=== PATIENT | female | born 1975 | race Caucasian/White ===

== ENCOUNTER 2016-07-16 12:55 | Outpatient (CLI) | payer MEDICAID ==
[~2016-07-16] VITALS: Ht 152.4 cm; Wt 67.7 kg
[~2016-07-16 12:55] MED LIST: ACET325T33 PO; CEPH-443 PO
[2016-07-16 13:08] VITALS: Ht 152.4 cm; Wt 67.7 kg
[2016-07-16 13:09] VITALS: BP 121/63; PULSE 72
[2016-07-16] MEDS ORDERED: PRENAT PO (13:11)
[2016-07-16] MEDS ORDERED: SITA50TA2 PO (13:12)
[2016-07-16] MEDS ORDERED: LACTATED RINGER'S 1,000 ML IV SCH (14:30)
[2016-07-16] MEDS ORDERED: TERBUTALINE 1 MG/ML INJ SC ONE (14:30)
--- NOTE | 2016-07-16 15:15 | RADRPT ---
PROCEDURE: US biophysical profile. CLINICAL INDICATION: Ruptured membranes. TECHNIQUE: Multiple sonographic images of the uterus were obtained. The images were revi ewed on a PACS workstation. COMPARISON: No prior studies are available for comparison. FINDINGS: There is a single live intrauterine gestation. heart rate is 157 beats per minute. The position is cephalic. The placenta is anterior grade II with no abruption or previa. The YOLANDA is 18.3 cm. (Normal = 5-20 cm.) Breathing Movement: 2 Gross Body Movement: 2 Tone: 2 Qualitative Amniotic Fluid Volume: 2 TOTAL: 8 IMPRESSION: 1. The biophysical score is 8/8. RPTAT: QQ .Chance Cerrato MD, Date Time Electronically viewed and signed by .Chance Cerrato MD, MD on 07/16/2016 15:15 .R/
[2016-07-16 15:40] LABS: ADD SCAN DIFF NO
[2016-07-16 15:42] LABS: BASOPHILS % 0.1 % (0.0-2.0); EOSINOPHILS # 0.1 10^3/ul (0.0-0.5); EOSINOPHILS % 0.9 % (0.0-7.0); HEMATOCRIT 35.1 % (37.0-47.0); HEMOGLOBIN 12.4 g/dl (12.0-16.0); LYMPHOCYTES # 1.5 10^3/ul (0.8-2.9); LYMPHOCYTES % 21.9 % (15.0-51.0); MEAN CORPUSCULAR HEMOGLOBIN 33.2 pg (29.0-33.0); MEAN CORPUSCULAR HGB CONC 35.3 g/dl (32.0-37.0); MEAN CORPUSCULAR VOLUME 94.1 fl (82.0-101.0); MEAN PLATELET VOLUME 10.4 fl (7.4-10.4); MONOCYTE # 0.4 10^3/ul (0.3-0.9); MONOCYTES % 5.5 % (0.0-11.0); NEUTROPHIL # 4.9 10^3/ul (1.6-7.5); NEUTROPHILS % 71.2 % (39.0-77.0); PLATELET COUNT 264 10^3/UL (140-415); RED BLOOD COUNT 3.73 10^6/ul (4.20-5.40); RED CELL DISTRIBUTION WIDTH 12.6 % (11.5-14.5); WHITE BLOOD COUNT 6.9 10^3/ul (4.8-10.8)
[2016-07-16 16:03] LABS: ADD UMIC YES; URINE BILIRUBIN (Dip) NEGATIVE (NEGATIVE); URINE BLOOD (Dip) 3+ (NEGATIVE); URINE COLOR LT. YELLOW (YELLOW); URINE GLUCOSE (Dip) NEGATIVE (NEGATIVE); URINE KETONES (Dip) NEGATIVE (NEGATIVE); URINE LEUKOCYTE ESTERASE (Dip) 3+ (NEGATIVE); URINE NITRITE (Dip) NEGATIVE (NEGATIVE); URINE TOTAL PROTEIN (Dip) NEGATIVE (NEGATIVE); URINE UROBILINOGEN (Dip) 0.2 E.U./dL (0.1-1.0)
[2016-07-16 16:18] LABS: BACTERIA,URINE FEW; SQUAMOUS EPITHELIAL CELL,UR FEW
--- NOTE | 2016-07-16 17:43 | QN ---
Documentation Comment 41 y/o female at 34.5 weeks C/O ? SROM and contractions during taking shower in AM when she noticed Watery blood runs along her legs. Patient has HX of GDM class A2 during : has refused insulin injections several times and was started on Metformin and Januvia. On exam: cervix is long , soft and closed Rom Plus is negative BPP 8/8 After IV hydration and SQ Terbutaline U/C subsided, Steroids given, next dose in 24 hours U/A: C/W UTI: empirically treated with Ancef and Macrobid Patient remains incompliant in attending antepartum testing unit: Will try to follow patient as outpatient and convice patient eo attend for antepartum testing. A: PTL:; Resolved will follow as outpatient BLANCO MCCANN MD July 16, 2016 17:43
[2016-07-16] MEDS ORDERED: BETAMET NA PHOS/AC(6 MG/ML) 5ML INJ IM ONE (18:00)
[2016-07-16] MEDS ORDERED: CEFAZOLIN 2 GM/50 ML (PMX) 50 ML IVPB ONE (18:00)
== END 2016-07-16 19:10 | disposition home or self-care (01) ==
LOC: OBT 12:55 → L-D 12:56 → OBT 19:10
PROVIDERS: ATTEND Obstetrics & Gynecology
DX: O60.03 Preterm labor without delivery, third trimester (principal); O24.415 Gestational diabetes mellitus in pregnancy, controlled by oral hypoglycemic drugs; O09.523 Supervision of elderly multigravida, third trimester; Z3A.34 34 weeks gestation of pregnancy
CPT/HCPCS: 76818; 81001; 82962; 84112; 85025; 96361; 96372; J0690; J0702; J3105; J7120; Z7500; 81003; G0463

== ENCOUNTER 2016-07-17 17:54 | Outpatient (CLI) | payer MEDICAID ==
[~2016-07-17] VITALS: Ht 152.4 cm; Wt 68.2 kg
[~2016-07-17 17:54] MED LIST changes: +PRENAT PO; +SITA50TA2 PO
[2016-07-17] MEDS ORDERED: BETAMET NA PHOS/AC(6 MG/ML) 5ML INJ IM ONE ×2 (18:15→18:30)
[2016-07-17 19:13] VITALS: Ht 152.4 cm; Wt 68.2 kg
--- NOTE | 2016-07-17 20:20 | QN ---
Documentation Comment 41 y/o female here for 2nd dose of Dteroids: givem A: labor will follow outpatient BLANCO MCCANN MD July 17, 2016 20:20
--- NOTE | 2016-07-17 20:25 | TRIAGE ---
OB Triage Datetime Report Generated by CPN: 07/17/2016 20:24 Datetime: 07/17/2016 18:31 Assessment Type: Triage Maternal Assessment Level of Consciousness: Fully Conscious DTR's/Clonus: DTRs 2+; No Clonus Headache: Denies Blurred Vision: No Respiratory Effort: Unlabored; Regular Rhythm; Equal Expansion Breath Sounds, Left: Clear and Equal Breath Sounds, Right: Clear and Equal Nausea/Vomiting: Denies RUQ Epigastric Pain: Denies Facial Edema: None Fall Risk Assessment History of Falling: (0) No Secondary Diagnosis: (0) No Ambulatory Aid: (0) Bedrest/Nurse Assist IV Therapy: (0) No Gait: (0) Normal/Bedrest/Immobile Mental Status: (0) Oriented to Own Ability Fall Score: 0 Fall Risk Score Definition: No Risk: No action required Datetime: 07/17/2016 18:12 Labor Evaluation Frequency: 0 Monitor Mode: External Heart Rate FHR Baseline Rate: 130 Monitor Mode: External US FHR Baseline Changes: No Baseline Change Variability: Moderate 6-25 bpm Accelerations: 15X15 Decelerations: None Category: Category I Pain Presence: None/Denies Datetime: 07/17/2016 17:55 Time of Arrival: 07/17/2016 17:55 EGA: 34.6 Arrived By: Ambulatory Arrived From: Home Chief Complaint: 2ND DOSE OF BETHAMETASONE, SPOTTING AND CRAMPING Movement: Present Contractions: Irregular Rupture of Membranes: Denies Vaginal Bleeding: None Vaginal Discharge: Denies Recent Sexual Intercouse: Denies Abdominal Trauma: Not Applicable Patient Complaints: Cramping Datetime: 07/16/2016 18:50 Stage of : OB Triage Datetime: 07/16/2016 18:10 Labor Evaluation Frequency: 0 Monitor Mode: External Resting Tone [place]: Relaxed Heart Rate FHR Baseline Rate: 145 Monitor Mode: External US Variability: Moderate 6-25 bpm Decelerations: None Category: Category I Pain Assessment Pain Scale: 0 Pain Presence: None/Denies Pain Type: N/A Pain Goal: 3 Pain Relief Measures: Comfort Measures Datetime: 07/16/2016 17:10 Labor Evaluation Frequency: OCCAS Monitor Mode: External Duration (sec)2399: 50-70 Quality: Mild Pattern: Normal: <= 5 Contractions in 10 Minutes Resting Tone [place]: Relaxed Heart Rate FHR Baseline Rate: 155 Monitor Mode: External US Variability: Moderate 6-25 bpm Accelerations: 10X10 Decelerations: None Category: Category I Pain Assessment Pain Scale: 0 Pain Presence: None/Denies Pain Type: N/A Pain Goal: 3 Pain Relief Measures: Comfort Measures Datetime: 07/16/2016 16:49 Bedside Blood Glucose: 101 Datetime: 07/16/2016 16:10 Labor Evaluation Frequency: X1 Monitor Mode: External Duration (sec)2399: 40 Quality: Mild Pattern: Normal: <= 5 Contractions in 10 Minutes Resting Tone [place]: Relaxed Heart Rate FHR Baseline Rate: 155 Monitor Mode: External US Variability: Moderate 6-25 bpm Decelerations: None Category: Category I Pain Assessment Pain Scale: 4 Pain Presence: Intermittent Pain Type: Cramping Pain Location: Abdomen Pain Goal: 3 Pain Relief Measures: Comfort Measures Datetime: 07/16/2016 15:13 Labor Evaluation Frequency: 6-7 Monitor Mode: External Duration (sec)2399: 50-70 Pattern: Normal: <= 5 Contractions in 10 Minutes Resting Tone [place]: Relaxed Heart Rate FHR Baseline Rate: 155 Monitor Mode: External US Variability: Moderate 6-25 bpm Accelerations: 10X10 Decelerations: None Category: Category I Pain Assessment Pain Scale: 3 Pain Presence: Intermittent Pain Type: Cramping Pain Location: Abdomen Pain Goal: 3 Pain Relief Measures: Comfort Measures Datetime: 07/16/2016 14:50 Vaginal Exam Dilatation (cms): 0.0 Exam By: dr genaro Vaginal Bleeding: Small Cervix, Consistency: Soft Cervix, Position: Posterior Datetime: 07/16/2016 14:19 Stage of : OB Triage Datetime: 07/16/2016 14:08 Monitor Mode: External Resting Tone [place]: Relaxed Heart Rate FHR Baseline Rate: 145 Monitor Mode: External US Variability: Moderate 6-25 bpm Accelerations: 10X10 Decelerations: None Category: Category I Pain Assessment Pain Scale: 6 Pain Presence: Intermittent Pain Type: Cramping Pain Location: Abdomen Pain Goal: 3 Datetime: 07/16/2016 13:05 Stage of : OB Triage Assessment Type: Triage Maternal Assessment Level of Consciousness: Fully Conscious DTR's/Clonus: DTRs 2+; No Clonus Headache: Denies Blurred Vision: No Respiratory Effort: Unlabored; Regular Rhythm; Equal Expansion Breath Sounds, Left: Clear and Equal Breath Sounds, Right: Clear and Equal Nausea/Vomiting: Denies RUQ Epigastric Pain: Denies Facial Edema: None Temperature Route: Axillary Fall Risk Assessment History of Falling: (0) No Secondary Diagnosis: (0) No Ambulatory Aid: (0) Bedrest/Nurse Assist IV Therapy: (0) No Gait: (0) Normal/Bedrest/Immobile Mental Status: (0) Oriented to Own Ability Fall Score: 0 Fall Risk Score Definition: No Risk: No action required Labor Evaluation Frequency: APPLIED Monitor Mode: External Resting Tone [place]: Relaxed Heart Rate FHR Baseline Rate: 140 Monitor Mode: External US Variability: Moderate 6-25 bpm Decelerations: None Category: Category II Pain Assessment Pain Scale: 6 Pain Presence: Intermittent Pain Type: Cramping Pain Location: Abdomen Pain Goal: 3 Pain Relief Measures: Comfort Measures Datetime: 07/16/2016 13:04 EGA: 34.5 Datetime: 07/16/2016 13:02 Time of Arrival: 07/16/2016 12:40 Arrived By: Ambulatory Arrived From: Home Chief Complaint: C/O POSS SROM/BLEEDING IN SHOWER THIS AM. INTERMITTENT ABDOMINAL PAIN Movement: Present Contractions: Irregular Rupture of Membranes: Unsure Vaginal Discharge: Denies Recent Sexual Intercouse: Denies Patient Complaints: Cramping Time Provider Notified: 07/16/2016 14:19 Provider Notified: GENARO Initial Plan: MONITOR, IV HYDRATION, TERB .25 SQ X1, CBC, ROM PLUS, BPP, ANCEF, BETAMETHASONE
== END 2016-07-17 20:20 | disposition home or self-care (01) ==
LOC: OBT 17:54 → L-D 17:55 → OBT 20:20
PROVIDERS: ATTEND Obstetrics & Gynecology
DX: O60.03 Preterm labor without delivery, third trimester (principal); Z3A.34 34 weeks gestation of pregnancy
CPT/HCPCS: 96372; J0702; Z7500; G0463

== ENCOUNTER 2016-08-15 12:18 | Inpatient (IN) | payer MEDICAID ==
[~2016-08-15] VITALS: Ht 152.4 cm; Wt 67.7 kg
[~2016-08-15 12:18] MED LIST changes: -ACET325T33 PO; -CEPH-443 PO
[2016-08-15] MEDS ORDERED: LACTATED RINGER'S 1,000 ML IV SCH (12:50)
[2016-08-15] MEDS ORDERED: OXYTOCIN 30 UNITS/LR 500 ML IV PRN ×2 (13:00→18:00)
[2016-08-15] MEDS ORDERED: METHYLERGONOVINE 0.2 MG INJ IM PRN ×2 (13:00→18:00)
[2016-08-15] MEDS ORDERED: OXYTOCIN 30 UNITS/LR 500 ML IV SCH (13:00)
[2016-08-15] MEDS ORDERED: CARBOPROST 250 MCG INJ IM PRN ×2 (13:00→18:00)
[2016-08-15] MEDS ORDERED: MISOPROSTOL 200 MCG TAB PR PRN ×2 (13:00→18:00)
[2016-08-15] MEDS ORDERED: CEFAZOLIN 2 GM/50 ML (PMX) 50 ML IV SCH (13:00)
[2016-08-15 13:19] LABS: ADD SCAN DIFF NO
[2016-08-15 13:27] VITALS: Ht 152.4 cm; Wt 67.7 kg
[2016-08-15] MEDS ORDERED: SITA1TAB5 PO (13:27)
[2016-08-15 13:28] VITALS: BP 124/62; PULSE 80; RESP 18
[2016-08-15 13:38] LABS: INR 0.85; PROTIME 11.6 Sec (12.2-14.2); PT RATIO 0.9
[2016-08-15 13:39] LABS: PARTIAL THROMBOPLASTIN TIME 27.2 Sec (25.0-35.0)
[2016-08-15 13:44] LABS: BASOPHILS % 0.1 % (0.0-2.0); EOSINOPHILS % 0.3 % (0.0-7.0); HEMATOCRIT 36.7 % (37.0-47.0); HEMOGLOBIN 12.5 g/dl (12.0-16.0); LYMPHOCYTES # 1.7 10^3/ul (0.8-2.9); LYMPHOCYTES % 24.7 % (15.0-51.0); MEAN CORPUSCULAR HEMOGLOBIN 31.7 pg (29.0-33.0); MEAN CORPUSCULAR HGB CONC 34.1 g/dl (32.0-37.0); MEAN CORPUSCULAR VOLUME 93.1 fl (82.0-101.0); MEAN PLATELET VOLUME 10.7 fl (7.4-10.4); MONOCYTE # 0.5 10^3/ul (0.3-0.9); MONOCYTES % 7.3 % (0.0-11.0); NEUTROPHIL # 4.5 10^3/ul (1.6-7.5); NEUTROPHILS % 67.2 % (39.0-77.0); PLATELET COUNT 261 10^3/UL (140-415); RED BLOOD COUNT 3.94 10^6/ul (4.20-5.40); WHITE BLOOD COUNT 6.7 10^3/ul (4.8-10.8)
[2016-08-15] MEDS ORDERED: morphine SULFATE/PF (10 MG/10 ML) INJ ONE (14:00)
[2016-08-15] MEDS ORDERED: FENTAnyl 50 MCG/ML VIAL ONE (14:00)
[2016-08-15] MEDS ORDERED: FAMOTIDINE 20 MG INJ ONE (14:14)
[2016-08-15] MEDS ORDERED: CITRIC ACID/SODIUM CITRATE 15 ML CUP ONE (14:14)
[2016-08-15] MEDS ORDERED: FAMOTIDINE 20 MG INJ IV ONE (14:30)
[2016-08-15] MEDS ORDERED: CITRIC ACID/SODIUM CITRATE 15 ML CUP PO ONE (14:30)
[2016-08-15] MEDS ORDERED: PHENYLephrine (100 MCG/ML) 5ML SYG ONE (14:32)
[2016-08-15] MEDS ORDERED: DEXAMETHASONE 4 MG/ML 1 ML INJ ONE (15:03)
[2016-08-15] MEDS ORDERED: ONDANSETRON 4 MG INJ ONE (15:06)
[2016-08-15] MEDS ORDERED: MIDAZOLAM 1 MG/ML 2 ML INJ ONE (15:07)
[2016-08-15] MEDS ORDERED: NALOXONE (0.4 MG/ML) INJ IV PRN (15:30)
[2016-08-15] MEDS ORDERED: ZOLPIDEM 5 MG TAB PO PRN (15:30)
[2016-08-15] MEDS ORDERED: DIPHENHYDRAMINE 50 MG INJ IV PRN (15:30)
[2016-08-15] MEDS ORDERED: ONDANSETRON 4 MG INJ IV PRN (15:30)
[2016-08-15] MEDS ORDERED: HYDROmorphONE 1 MG/ML SYG IV PRN ×2 (15:30)
--- NOTE | 2016-08-15 15:32 | HP ---
Date/Time of Note Date/Time of Note DATE: 08/15/16 TIME: 15:29 OB - History Hx of Present Free Text/Dictation admitted for repeat C/S at term Last Menstrual Period: Dec 01, 2006 Estimated Due Date: Aug 22, 2016 : 3 Para: 2 Care: Good Care Obstetrical Complications: Gestational Hypertension (Class C DM ) Past Family/Social History * Past Medical, Surgical, Family and Obstetric Histories reviewed from chart. Blood Type: O+ Rubella: immune RPR/VDRL: Negative GBS Status: Positive HBsAG: Negative OB Admission Exam Vital Signs Vital Signs Vital Signs Date Time Temp Pulse Resp B/P Pulse Ox O2 Delivery O2 Flow Rate FiO2 08/15/16 13:28 98.5 80 18 124/62 Room Air Physical Exam HEENT: WNL Heart: Rhythm Normal Lungs: Clear, Equal Abdomen: WNL Extremities: Normal Reflexes: Normal Cervical Dilatation: None Effacement: 0% Station: -3 Membranes: Intact Amniotic Fluid: Clear Heart Rate: 130's Accelerations: Accelerations Present Decelerations: No Decelerations Varibility: Marked Contractions on Admission: None Last 72 hours Lab Results CBC & BMP 08/15/16 12:50 OB Assessment/Plan Reason for admission: section Other Assessment: term gestation previous C/S X 2 Other plan: repeat C/S BLANCO MCCANN MD August 15, 2016 15:32
--- NOTE | 2016-08-15 15:35 | OPR ---
Operative Report Planned Procedure Procedure date August 15, 2016 Procedure(s) repeat C/S Performed by: BLANCO MCCANN MD Assisting provider: NALLELY CABRERA MD Anesthesiologist: MICHA WHYTE Pre-procedure diagnosis term gestation previous C/S Anesthesia Type: spinal Procedure Description Under satisfactory anaesthesia a Pfannenstiel incision was made two fingerbreadth above and parallel to the symphysis of pubis around the previous scar and previous scar was removed Incision was extended laterally to the border of the Recti muscles on either sides. Incision was carried down with sharp and blunt dissection until fascia was reached. Anterior Recti muscle fascia was incised in mid portion and incision extended laterally to the border of skin incision. Fascia was mobilized from muscle superiorly and Recti muscles were from midline using sharp and blunt dissection. Peritoneum was visualized; Avoiding bowel and bladder it was incised . Incision was extended superiorly and inferiorly. Bladder blade was placed. Posterior peritoneum covering the lower segment of the uterus and lower segment of the uterus were incised.Low transverse uterine incision was made on lower segment of the uterus. Incision extended laterally to the border of Round Lig. on either sides and baby was delivered from OT. position . Amniotic fluid appeared clear. Cord blood was obtained and cord had 3 vessels . Placenta was delivered spontaneously and appeared intact and complete. Intrauterine cavity was rubbed with a laparotomy sponge. Uterine incision was closed in 2 layers using running stitches of No1 Monocryl. Hemostasis appeared secure. Ovaries and Fallopian tubes were within normal limits. Announcing needle, lap sponge and instrument count to be correct abdomen was closed in layers as follows: Peritoneum and Recti muscles with running stitches of 20 Vicryl. Fascia with running stitch of No 1 PDS. Subcutaneous tissue with running stitches of 20 Chromic and skin was closed using thee. Patient tolerated the procedure well and was transferred to [facility] in good condition. Post-Procedure Post-procedure diagnosis S/P C/S Findings: Live Baby Specimen removed: No Complications: None Pt Condition post procedure: stable Disposition: PACU Physician Certification I, the undersigned physician, hereby certify that I have discussed the procedure described in this consent form with this patient (or the patient's legal patient accounting representative), including: * The risk and benefits of the procedure; * Any adverse reactions that may reasonably be expected to occur; * Any alternative efficacious methods of treatment which may be medically viable ; * The potential problems that may occur during recuperation; * Potential for blood transfusion and associated risks/benefits; and * Any research or economic interest I may have regarding this treatment. I further certify that the patient/legally responsible person was encouraged to ask question and that all questions were answered. BLANCO MCCANN MD August 15, 2016 15:35
[2016-08-15] MEDS: LACTATED RINGER'S 1,000 ML IV SCH ×2 (17:33→21:08)
[2016-08-15 18:00] VITALS: BP 134/79; PULSE 73; RESP 18
[2016-08-15] MEDS ORDERED: ACETAMINOPHEN/CODEINE #3 TAB PO PRN (18:00)
[2016-08-15] MEDS ORDERED: NA PHOSPHATE/BIPHOS 133 ML ENEMA PR PRN (18:00)
[2016-08-15] MEDS ORDERED: LANOLIN 7 GM TUBE TOP PRN (18:00)
[2016-08-15] MEDS: CLINDAMYCIN 300 MG CAP PO SCH ×2 (18:00→23:49)
[2016-08-15] MEDS ORDERED: GLUCAGON 1 MG INJ IM PRN (18:00)
[2016-08-15] MEDS ORDERED: GLUCOSE GEL 15 GRAM TUBE PO PRN ×2 (18:00)
[2016-08-15] MEDS ORDERED: GLUCOSE GEL 15 GRAM TUBE BUCCAL PRN (18:00)
[2016-08-15] MEDS ORDERED: DEXTROSE 50% 50 ML SYRINGE IV PRN ×2 (18:00)
[2016-08-15] MEDS: KETOROLAC 30 MG INJ IV PRN ×2 (18:17→23:03)
[2016-08-15 18:30] VITALS: BP 136/69; PULSE 72; RESP 18
[2016-08-15] MEDS: metFORMIN (XR) 500 MG TAB PO SCH (18:30)
[2016-08-15 20:00] VITALS: BP 130/78; RESP 18
[2016-08-15] MEDS: ACCU-CHEK XX SCH (20:05)
[2016-08-15] MEDS: CEFAZOLIN 2 GM/50 ML (PMX) 50 ML IV SCH (21:08)
[2016-08-15] MEDS: SENNA/DOCUSATE NA (8.6MG/50MG) TAB PO SCH (21:08)
[2016-08-16] VITALS: BP 128/77; PULSE 69; RESP 20
[2016-08-16 04:00] VITALS: BP 111/56; PULSE 63; RESP 18
[2016-08-16] MEDS: CEFAZOLIN 2 GM/50 ML (PMX) 50 ML IV SCH ×2 (05:08→11:24)
[2016-08-16] MEDS: LACTATED RINGER'S 1,000 ML IV SCH ×2 (05:50→17:33)
[2016-08-16] MEDS: CLINDAMYCIN 300 MG CAP PO SCH ×4 (05:50→23:50)
[2016-08-16] MEDS: KETOROLAC 30 MG INJ IV PRN (07:54)
[2016-08-16] MEDS: metFORMIN (XR) 500 MG TAB PO SCH ×2 (07:54→18:36)
[2016-08-16] MEDS: ACCU-CHEK XX SCH ×4 (07:55→22:00)
[2016-08-16 08:00] VITALS: BP 103/58; PULSE 65; RESP 18
[2016-08-16 08:21] LABS: ADD SCAN DIFF NO
[2016-08-16 08:26] LABS: BASOPHILS % 0.1 % (0.0-2.0); EOSINOPHILS % 0.2 % (0.0-7.0); HEMATOCRIT 30.4 % (37.0-47.0); HEMOGLOBIN 10.6 g/dl (12.0-16.0); LYMPHOCYTES # 1.9 10^3/ul (0.8-2.9); LYMPHOCYTES % 23.6 % (15.0-51.0); MEAN CORPUSCULAR HEMOGLOBIN 32.1 pg (29.0-33.0); MEAN CORPUSCULAR HGB CONC 34.9 g/dl (32.0-37.0); MEAN CORPUSCULAR VOLUME 92.1 fl (82.0-101.0); MEAN PLATELET VOLUME 10.6 fl (7.4-10.4); MONOCYTE # 0.6 10^3/ul (0.3-0.9); MONOCYTES % 7.5 % (0.0-11.0); NEUTROPHIL # 5.5 10^3/ul (1.6-7.5); NEUTROPHILS % 68.2 % (39.0-77.0); PLATELET COUNT 242 10^3/UL (140-415); RED CELL DISTRIBUTION WIDTH 12.8 % (11.5-14.5)
[2016-08-16] MEDS ORDERED: BISACODYL 10 MG SUPP PR ONE (10:00)
[2016-08-16] MEDS: SENNA/DOCUSATE NA (8.6MG/50MG) TAB PO SCH ×2 (11:24→21:28)
[2016-08-16 12:08] VITALS: BP 130/84; PULSE 76; RESP 19
--- NOTE | 2016-08-16 13:48 | PN ---
Date/Time of Note Date/Time of Note DATE: 08/16/16 TIME: 13:47 Assessment/Plan VTE Prophylaxis VTE Prophylaxis Intervention: ambulation Lines/Catheters IV Catheter Type (from Nrsg): Peripheral IV Assessment/Plan Assessment/Plan S/P C/S POD # 1 will advance diet and ambulate Subjective 24 Hr Interval Summary NO BM passing flatus Constitutional: BM, ambulates, flatus, improved, no complaints, urine output Pain Control: well controlled Exam/Review of Systems Vital Signs Vitals Vital Signs Date Time Temp Pulse Resp B/P Pulse Ox O2 Delivery O2 Flow Rate FiO2 08/16/16 12:08 97.9 76 19 130/84 Room Air Intake and Output 08/15/16 08/15/16 08/16/16 15:00 23:00 07:00 Intake Total 675 ml 500 ml Output Total 400 ml 900 ml Balance 275 ml -400 ml Exam Free Text/Dictation abdomen: soft BS + Incision: covered Constitutional: alert, oriented, well developed Psych: nl mood/affect, no complaints Head: atraumatic, normocephalic Eyes: EOMI, nl conjunctiva, nl lids, nl sclera ENMT: mucosa pink and moist, nl external ears & nose, nl lips & teeth, nl nasal mucosa & septum Neck: non-tender, supple Respiratory: clear to auscultation, normal air movement Cardiovascular: nl pulses, regular rate and rhythm Gastrointestinal: nl liver, spleen, non-tender, soft Musculoskeletal: nl extremities to inspection, nl gait and stance Extremities: normal pulses Neurological: BROOMC[place] SEEDER II-XII intact, nl mental status, nl speech, nl strength Skin: nl turgor, rash or lesions Lymph: nl lymph nodes Results Result Diagram: 08/16/16 0732 BLANCO MCCANN MD Aug 16, 2016 13:48
[2016-08-16] MEDS: IBUPROFEN 800 MG TAB PO SCH ×2 (15:28→21:28)
[2016-08-16 16:16] VITALS: BP 140/77; PULSE 75; RESP 19
[2016-08-16] MEDS: OXYCODONE/ACETAMINOPHEN (5/325) TAB PO PRN (16:39)
[2016-08-16 19:45] VITALS: BP 118/80; PULSE 72; RESP 19
[2016-08-17] MEDS: LACTATED RINGER'S 1,000 ML IV SCH ×3 (01:33→16:11)
[2016-08-17] MEDS: OXYCODONE/ACETAMINOPHEN (5/325) TAB PO PRN ×3 (04:27→15:00)
[2016-08-17] MEDS: IBUPROFEN 800 MG TAB PO SCH ×3 (05:25→22:18)
[2016-08-17] MEDS: CLINDAMYCIN 300 MG CAP PO SCH ×3 (05:25→17:49)
[2016-08-17] MEDS: ACCU-CHEK XX SCH ×4 (07:30→20:05)
[2016-08-17] MEDS: SENNA/DOCUSATE NA (8.6MG/50MG) TAB PO SCH ×2 (08:22→20:51)
[2016-08-17] MEDS: metFORMIN (XR) 500 MG TAB PO SCH ×2 (08:22→17:55)
[2016-08-17 08:30] VITALS: BP 121/63; PULSE 63; RESP 18
--- NOTE | 2016-08-17 14:58 | DS ---
Date/Time of Note Date/Time of Note home next day DATE: 08/17/16 TIME: 14:56 Obstetrical Discharge Record Final Diagnosis Final Diagnosis: Term delivered Other Final Diagnosis S/P C/S Section Section: Repeat Complications Gestational Diabetes Condition on Discharge Physical Assessment Last Vitals: see nurses notes Voiding: Yes Bowel Movement: Yes Breast: Soft, non-tender, Filling Fundus: Firm Abdomen and Incision: soft bs + Incision: healing well Episiotomy: NA Calf Tenderness: No Patient Condition: Good BLANCO MCCANN MD Aug 17, 2016 14:58
--- NOTE | 2016-08-17 15:00 | DS ---
Date/Time of Note Date/Time of Note DATE: 08/17/16 TIME: 14:58 Discharge Summary Admission/Discharge Info Admit Date/Time August 15, 2016 at 12:18 Discharge Date/Time 08/18/2016 Final Diagnosis S/P C/S Patient Condition: Good Procedures repeat C/S Hx of Present Illness 41 y/o female had repeat C/S Hospital Course uncomplicated Home Meds Reported Medications Sitagliptin Phos/Metformin HCl (Janumet 50-1,000 mg Tablet) 1 Each Tablet, 1 EACH PO BID, TAB 08/15/16 Discontinued Reported Medications Sitagliptin* (Januvia*) 50 Mg Tablet, 50 MG PO DAILY, #30 TAB 07/16/16 Multivit/Min/Fol Ac/Iron/Pren* ( S*) 1 Tab Tab, 1 TAB PO DAILY, TAB 07/16/16 Follow-up Plan 2-3 days for staple removal Primary Care Provider Care Physician No Primary Pending Labs Laboratory Tests Test 08/16/16 15:31 08/16/16 20:22 08/16/16 22:18 08/17/16 08:09 Bedside Glucose 123mg/dL (70-220) 211mg/dL (70-220) 118mg/dL (70-220) 138mg/dL (70-220) Test 08/17/16 12:04 Bedside Glucose 113mg/dL (70-220) BLANCO MCCANN MD Aug 17, 2016 15:00
[2016-08-17 16:25] VITALS: BP 131/68; PULSE 72; RESP 18
--- NOTE | 2016-08-17 17:29 | PD.PPDC ---
MUSIC THERAPIST Discharge Instruction Provider Information Physician Information 41 y/o female had C/S Diagnosis Final Diagnosis: S/P C/S Condition Patient Condition: Good Diet Diet: Special Diet Special Diet: 1800 arun ADA Activity/Restrictions Activity: July Shower Restrictions: No Exercising No Lifting Nothing in the Vagina Return to Work or School: Oct 22, 2016 Follow-up Follow-up with Physician: 2, 3, Day/Days (in clinic for syaple removal ) Return to clinic for MEAT PACKER Instructions: Fever greater than 101 Chills OB Instructions: Breast Tenderness Depression Surgical Instructions: Incisional Drainage Incisional Redness BLANCO MCCANN MD Aug 17, 2016 17:29
[2016-08-17] MEDS ORDERED: METF500T3 PO (17:31)
[2016-08-17] MEDS ORDERED: IBUP800T25 PO (17:31)
[2016-08-17] MEDS ORDERED: Oxycodone/Acetamin (5/325) PO (17:31)
[2016-08-17 19:20] VITALS: BP 132/76; PULSE 73; RESP 19
[2016-08-18 04:10] VITALS: BP 136/83; PULSE 78; RESP 20
[2016-08-18] MEDS: IBUPROFEN 800 MG TAB PO SCH (05:39)
[2016-08-18] MEDS: CLINDAMYCIN 300 MG CAP PO SCH ×3 (05:39→12:00)
[2016-08-18] MEDS: ACCU-CHEK XX SCH ×2 (07:30→10:05)
[2016-08-18] MEDS: SENNA/DOCUSATE NA (8.6MG/50MG) TAB PO SCH (08:22)
[2016-08-18] MEDS: metFORMIN (XR) 500 MG TAB PO SCH (08:23)
[2016-08-18 08:45] VITALS: BP 131/68; PULSE 72; RESP 18
[2016-08-18] MEDS ORDERED: MEASLES,MUMPS,RUBELLA VACCINE INJ SC* ONE (09:00)
[2016-08-18] MEDS ORDERED: DIPHTH/TET/ACEL PERTUSS (ADULT) 0.5 ML VIAL IM* ONE (09:00)
== END 2016-08-18 17:35 | disposition home or self-care (01) | DRG 766 ==
LOC: L-D 12:18 → PP1 17:55
PROVIDERS: ADMIT Obstetrics & Gynecology; ATTEND Obstetrics & Gynecology
PROC: 10D00Z1 Extraction of Products of Conception, Low, Open Approach (ICD-10-PCS; principal; 2016-08-15 14:00)
DX: O34.211 Maternal care for low transverse scar from previous cesarean delivery (principal); O13.4 Gestational [pregnancy-induced] hypertension without significant proteinuria, complicating childbirth; Z3A.39 39 weeks gestation of pregnancy; Z37.0 Single live birth
CPT/HCPCS: 82962; 85025; 85610; 85730; 86592; 86850; 86900; 86901; 90715; 99464; J0690; J1100; J1200; J1885; J2250; J2274; J2370; J2405; J2590; J3010; J7120